=== PATIENT | female | born 1980 | race Caucasian/White ===

== ENCOUNTER 2020-08-22 19:47 | Emergency (ER) | payer OTHER ==
[~2020-08-22 19:47] MED LIST: BACTROBAN OINT22 GM EXT; DOXYCYCLINE HY100 MG PO; MACROBID 100 M100 MG PO; OMNICEF 300 MG300 MG PO; PYRIDIUM200 MG PO
[2020-08-22 21:11] LABS: BUN/CREATININE RATIO 24 (0-10)
[2020-08-22 21:31] LABS: HEMOGLOBIN 10.8 gm/dl (12.3-15.3); RED BLOOD COUNT 3.06 M/UL (4.00-5.10)
[2020-08-29 06:15] LABS: WHITE BLOOD COUNT 59.9 K/UL (4.5-11.0)
== END 2020-08-22 22:45 | disposition home or self-care (01) ==
LOC: ER1 19:47
PROVIDERS: Family Medicine
DX: A59.01 Trichomonal vulvovaginitis (principal); R09.89 Other specified symptoms and signs involving the circulatory and respiratory systems; M79.10 Myalgia, unspecified site; C50.919 Malignant neoplasm of unspecified site of unspecified female breast; F17.200 Nicotine dependence, unspecified, uncomplicated; Z79.899 Other long term (current) drug therapy; Z90.13 Acquired absence of bilateral breasts and nipples; Z20.822 Contact with and (suspected) exposure to COVID-19
CPT/HCPCS: 71045; 80053; 81001; 83615; 85025; 86140; 87086; 87210; 93005; 96372; 96374; 99284; J0696; J2270; U0002